=== PATIENT | female | born 1975 | race Asian ===

== ENCOUNTER 2021-08-22 11:08 | Outpatient (CLI) | payer BC, SELFPAY ==
--- NOTE | ~2021-08-22 | MMUS_ITS ---
EXAMINATION: MM diag miguel implant BI w axel, US breast BI complete HISTORY: Palpable left breast mass. Silicone implants. TECHNIQUE: Additional 3-D tomosynthesis images of the breasts were performed and synthetic 2-D images were generated. CAD analysis was submitted and interpreted. High resolution bilateral complete breas t ultrasound was performed. COMPARISON: None BREAST PARENCHYMAL COMPOSITION: The breasts are heterogenously dense, which may obscure small masses FINDINGS: MAMMOGRAPHIC FINDINGS: In the upper inner quadrant of the left breast there is a 3.1 cm mass. There are no suspicious calcif ications or architectural distortion. No mammographic evidence for malignancy in the right breast. ULTRASOUND: Complete bilateral US of all 4 quadrants of the breasts and retroareolar region was reviewed. Right breast ultrasound: At 3:00 near the nipple there is an oval hypoechoic mass measuring 8 mm with posterior acoustic enhancement. No internal vascularity. There are multiple simple and complicated c yst of the right breast. There are several oval hypoechoic masses of the right breast with low-level internal echoes, likely benign. At 9:00, 5 cm from the nipple there is an oval hypoechoic mass with l ow level internal echoes. No significant posterior features. In the axilla there are several hyperech oic masses with dirty shadowing, possibly extravasated silicone. Left breast ultrasound: In the area of palpable concern at 11:00 there is a 2.8 cm corresponding to t he mass seen on mammography. At 12:00, 4 cm from the nipple there is an oval hypoechoic mass measurin g 7 mm with internal vascularity and no significant posterior features. There is parallel orientation . There are multiple cysts of the left breast. IMPRESSION: 1. Probable benign bilateral breast masses. 2. Recommend 6 month follow-up bilateral breast ultrasound. BI-RADS CATEGORY 3-PROBABLY BENIGN FINDING Reviewed, dictated and finalized at location A. IMPRESSION: 1. Probable benign bilateral breast masses. 2. Recommend 6 month follow-up bilateral breast ultrasound. BI-RADS CATEGORY 3-PROBABLY BENIGN FINDING
== END 2021-08-22 11:09 | disposition home or self-care (01) ==
LOC: ANHIMG 11:10
PROVIDERS: Visit Provider Obstetrics & Gynecology
DX: N63.12 Unspecified lump in the right breast, upper inner quadrant (principal)
CPT/HCPCS: 76641; 77062; 77066; G0279